=== PATIENT | male | born 1970 ===

== ENCOUNTER 2020-12-07 12:03 | Emergency (ER) | payer OTHER, SELFPAY ==
[2020-12-07] VITALS (24 sets, daily range): BP systolic 107–134; BP diastolic 68–99; PULSE 59–97; RESP 18–20; TEMP 36.3; O2SAT 92–100
--- NOTE | ~2020-12-07 | CT_ITS ---
EXAMINATION: CT lumbar spine wo con DATE: 12/07/2020 16:48 INDICATION: Back pain. TECHNIQUE: Computed tomography (CT) of the lumbar spine was performed without intravenous contrast. A utomated exposure control and iterative reconstruction technique were employed. The dose-length produ ct was 960.86 mGy-cm. COMPARISON: None FINDINGS: There is 14 degrees dextroscoliosis of lumbar spine. There is a compression fracture of L1 with less than 1/5 loss of height. There is mildly decreased disc height at L3-L4. The following disc levels are specifically discussed: L1-L2: The disc does not extend beyond the endplate margin. There is moderate bilateral facet joint o steoarthritis. There is no neural foraminal stenosis. There is no central canal stenosis. L2-L3: The disc is bulging. There is mild bilateral facet joint osteoarthritis. There is no neural fo raminal stenosis. There is mild central canal stenosis. L3-L4: The disc is bulging. There is mild bilateral facet joint osteoarthritis. There is mild bilater al neural foraminal stenosis. There is mild central canal stenosis. L4-L5: The disc is bulging. There is mild bilateral facet joint osteoarthritis. There is mild bilater al neural foraminal stenosis. There is mild central canal stenosis. L5-S1: The disc is bulging. There is mild bilateral facet joint osteoarthritis. There is mild bilater al neural foraminal stenosis. There is mild central canal stenosis. IMPRESSION: 1. Acute L1 compression fracture. 2. Mild lumbar spondylosis. Reviewed, dictated and finalized at [facility]. CTOR COMPENSATION
--- NOTE | ~2020-12-07 | CT_ITS ---
EXAMINATION: CTA chest abdomen pelvis DATE: 12/07/2020 16:47 INDICATION: Aortic aneurysm. Back pain. Abdominal pain. TECHNIQUE: Computed tomography (CT) of the chest, abdomen, and pelvis was performed with 100 cc Omnip aque 350 intravenous contrast. Automated exposure control and iterative reconstruction technique were employed. Exam dose: 960.86 mGy-cm total exam DLP. COMPARISON: 01/11/2010 AP and lateral chest FINDINGS: CHEST CT: No thoracic aortic aneurysm or dissection. Normal heart size. No hilar or mediastinal mass lesion or lymphadenopathy. Normal size and homogeneous enhancement of the thyroid gland. No pericardial or pleural effusion. Emphysematous changes are noted with bilateral apical bullae, right greater than left No pulmonary infiltrate or consolidation. ABDOMEN/PELVIS CT: 5 cm splenic cyst. Diffuse hepatic steatosis. No hepatic space-occupying mass lesion is detected. No bile duct dilatatio n. The gallbladder is distended. No gallbladder wall thickening or pericholecystic fluid or fat stran ding. No pancreatic duct dilatation. No pancreatic mass lesion or calcification. Mild bilateral adrenal hypertrophy. No renal mass lesion or urinary tract calculus or hydroureteronephrosis. The urinary bladder is unrem arkable. Moderate prostate enlargement. No abdominal aortic aneurysm or dissection. No intraperitoneal or retroperitoneal or pelvic mass lesi on or adenopathy or ascites. Normal appendix. There are numerous diverticula of the sigmoid colon; no CT evidence of diverticulitis. No bowel obstr uction, bowel wall thickening, pneumatosis or intraperitoneal free air. No suspicious osteolytic or osteoblastic lesions. IMPRESSION: No thoracic or abdominal aortic aneurysm Emphysema 5 cm splenic cyst Sigmoid: Diverticulosis; no CT evidence of diverticulitis Reviewed, dictated and finalized at [facility]. Reviewed, dictated and finalized at [facility]. ARCH AND EVALUATION ANALYST
--- NOTE | 2020-12-07 15:06 | ED.BACK ---
HPI - Back Pain/Injury General Chief Complaint: Back Pain/Injury Stated Complaint: low back pain, decreased sensation to legs Time Seen by Provider: 12/07/20 14:20 Source: patient Mode of arrival: ambulatory Limitations: no limitations History of Present Illness HPI Narrative: This patient is a 50 year old male with history of MARfans syndrome who presents for evaluation of low back pain. He reports earlier today he was performing heavy lifting at work. He states he felt a pop in his lower back . He is complaining of arm weakness and leg weakness. He also reports shooting pain up his back and to his abdomen. He denies urinary incontinence. Related Data Home Medications Medication Instructions Recorded Confirmed albuterol sulfate INHALATION 12/07/20 atorvastatin 12/07/20 azithromycin 12/07/20 escitalopram oxalate mg 12/07/20 levetiracetam PO 12/07/20 levetiracetam PO 12/07/20 levothyroxine 12/07/20 levothyroxine 12/07/20 metoprolol succinate PO 12/07/20 Allergies Allergy/AdvReac Type Severity Reaction Status Date / Time codeine Allergy Mild Hives Verified 12/07/20 12:18 Review of Systems Review of Systems: All systems reviewed & are unremarkable except as noted in HPI and below PMFSH Past Medical History Medical History (Updated 12/07/20 @ 18:16 by Alda Jaime MD) Marfan syndrome Surgical History Surgical History (Updated 12/07/20 @ 15:15 by Alda Jaime MD) H/O aortic root repair Family History Family History (Updated 05/16/19 @ 08:59 by DOCTOR UNKNOWN) Other Family history of cardiovascular disease Social History Social History Smoking status: Heavy tobacco smoker Alcohol intake: never Gender identity (if verbalized by the patient): Male Exam Const: General: no acute distress and alert Nutritional Appearance: thin Orientation/consciousness: patient oriented x3 Eyes: EOM: EOMs intact bilaterally Chest: Chest palpation & inspection: normal inspection of the chest Resp: Effort & Inspection: normal respiratory effort and no retractions Auscultation: clear to auscultation bilaterally Cardio: Rate: regular rate Rhythm: regular rhythm Heart sounds: no murmurs GI: GI Palp: Yes Soft to palpation, Yes Tenderness to palpation present (GI) (mild lower), No Guarding due to palpation present (GI) and No Rigid due to palpation Auscultation: normal bowel sounds Skin: General skin exam: normal color Rashes: no rashes Neuro: General: patient oriented x3, moves all extremities, no meningeal signs, no focal motor deficits and CN's II-XI intact bilaterally Speech: normal speech Other: sensation intact, no saddle anesthesia Extrem: General: normal to inspection Other: palpable bilateral PT/DP pulses Psych: Mental Status: mental status grossly normal Affect: normal affect Course Reevaluation(s) Reevaluation #1: PAtient was concerned regarding his Aorta given history of marfans with previous surgery. CT was performed which did not show any acute aortic abnormalities. CT lumbar spine shows some mild bulging disc and mild L1 compression fracture. PAtient does not have deficits on exam to suggest need for acute intervention. He will follow up and he will be prescribed pain medication. Follow up with your doctors at [facility] for evaluation of your pain. Date: 12/07/20 Time: 18:11 Vital Signs Vital signs: Vital Signs Temperature 97.4 F L 12/07/20 12:13 Pulse Rate 70 12/07/20 12:13 Respiratory Rate 20 12/07/20 12:13 Blood Pressure 114/72 12/07/20 12:13 Pulse Oximetry 96 12/07/20 12:13 Temperature 97.4 F L 12/07/20 12:13 Pulse Rate 59 L 12/07/20 15:13 Respiratory Rate 18 12/07/20 15:13 Blood Pressure 120/74 12/07/20 17:46 Pulse Oximetry 100 12/07/20 18:00 MDM - Back Pain/Injury Lab Data Attestation: I reviewed the patient's lab results. Result diagrams: 12/07/20 15:05 12/07/20 15:05
[2020-12-07 15:11] LABS: Basophils Percent Auto 0.4 % (0.2-1.2); Eosinophils Absolute Auto 0.2 K/mm3 (0-0.3); Eosinophils Percent Auto 1.9 % (0-4.4); Hematocrit 40.3 % (42.0-52.0); Immature Granulocyte Absolute 0.05 K/mm3 (0.00-0.031); Immature Granulocyte Percent A 0.4 % (0-0.5); Lymphocytes Absolute Auto 2.85 K/mm3 (0.9-3.2); Lymphocytes Percent Auto 25.2 % (18.3-44.2); Mean Corpuscular HGB Conc 34.7 g/dl (32-36); Mean Corpuscular Hemoglobin 32.6 pg (26-34); Mean Corpuscular Volume 93.7 fl (80-100); Mean Platelet Volume 8.2 fl (7.4-10.4); Monocytes Absolute Auto 0.8 K/mm3 (0.1-0.6); Monocytes Percent Auto 7.3 % (2.6-8.5); Neutrophils Absolute Auto 7.3 K/mm3 (1.3-6.7); Neutrophils Percent Auto 64.8 % (45.5-73.1); Platelet Count Result 181 k/mm3 (150-375); Red Cell Distribution Width 12.8 % (11.5-14.5); White Blood Count 11.3 K/mm3 (4.5-10.0)
[2020-12-07] MEDS: ONDANSETRON INJ 4 MG/2 ML VIAL IV PUSH (15:12)
[2020-12-07] MEDS: HYDROmorphone HCL INJ (*CRX) 1 MG/ML SYR 0.5 MG IV PUSH (15:12)
[2020-12-07 15:21] LABS: Partial Thromboplastin Time 27.5 SECONDS (22.3-36.8); Prothrombin Time 13.4 Seconds (11.1-14.7)
[2020-12-07 15:25] LABS: Alanine Aminotransferase 19 U/L (4-50); Alkaline Phosphatase 74 U/L (38-126); Anion Gap 3 mmol/L (8-16); Aspartate Amino Transferase 27 U/L (17-59); Bilirubin,Total 0.6 mg/dL (0.2-1.3); Blood Urea Nitrogen 16 mg/dL (9-20); Calcium 8.8 mg/dL (8.4-10.2); Carbon Dioxide 30 mmol/L (22-30); Chloride 95 mmol/L (98-107); Estimated CRCL calculation 94 ml/min; Estimated Glomerular Filt Rate > 60; Glucose 95 mg/dL (75-110); Lipase 42 U/L (23-300); Potassium 4.4 mmol/L (3.4-5.0); Sodium 128 mmol/L (137-145)
[2020-12-07 16:56] LABS: Add Urine Microscopic? YES; Appearance Urine Cloudy (Clear); Bilirubin Urine Negative (Negative); Blood Urine Negative (Negative); Color Urine Yellow (Yellow); Glucose Urine UA Negative (Negative); Ketones Urine Trace mg/dL (Negative); Leukocyte Esterase Ur Negative LEU/UL (Negative); Mucus Urine Rare /lpf; Nitrate Urine Negative (Negative); Protein Urine 1+ mg/dL (Negative)
[2020-12-07 17:01] LABS: Specific Grav Ur 1.042 (1.001-1.035)
== END 2020-12-07 18:53 | disposition home or self-care (01) ==
PROVIDERS: Emergency Provider General Practice; PCP Internal Medicine
DX: S32.010A Wedge compression fracture of first lumbar vertebra, initial encounter for closed fracture (principal); Q87.40 Marfan syndrome, unspecified; F17.200 Nicotine dependence, unspecified, uncomplicated; M47.816 Spondylosis without myelopathy or radiculopathy, lumbar region; J43.9 Emphysema, unspecified; D73.4 Cyst of spleen; K57.30 Diverticulosis of large intestine without perforation or abscess without bleeding; X50.0XXA Overexertion from strenuous movement or load, initial encounter
CPT/HCPCS: 36415; 71275; 72131; 74174; 80053; 81001; 83690; 85025; 85610; 85730; 96374; 96375; 99284; J1170; J2405; Q9967